=== PATIENT | male | born 1985 | race Caucasian/White ===

== ENCOUNTER 2020-08-06 12:33 | Outpatient (NON) | payer OTHER, SELFPAY ==
[2020-08-07 23:03] LABS: SARS-CoV-2 RNA PCR Negative
== END 2020-08-06 12:34 ==
PROVIDERS: Visit Provider Family Medicine Adolescent Medicine
DX: R09.81 Nasal congestion (principal); R51.9 Headache, unspecified; R53.83 Other fatigue; Z20.828 Contact with and (suspected) exposure to other viral communicable diseases
CPT/HCPCS: 87635; C9803; U0003

== ENCOUNTER 2021-06-05 17:12 | Emergency (ER) | payer BC, SELFPAY ==
[2021-06-05 17:17] VITALS: BP 154/89; PULSE 103; RESP 16; TEMP 35.4; O2SAT 96
--- NOTE | 2021-06-05 17:26 | PC.NURSE ---
agustina contacted from poison control. treatment to irrigate eyes and check for corneal abrasions.
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
[2021-06-05] MEDS: FLUORESCEIN SOD 1 MG/STRIP (19:58)
== END 2021-06-05 20:17 | disposition home or self-care (01) ==
LOC: ANHED 19:55
PROVIDERS: Emergency Provider Emergency Medicine; PCP Family Medicine Adolescent Medicine
DX: H57.13 Ocular pain, bilateral (principal)
CPT/HCPCS: 99283

== ENCOUNTER 2022-07-03 10:39 | Emergency (ER) | payer BC, SELFPAY ==
--- NOTE | 2022-07-03 10:51 | ED.EAR ---
HPI - Ear Problem General Chief complaint: Ear Stated complaint: bilateral ear discomfort,dizziness Time Seen by Provider: 07/03/22 10:51 Source: patient Mode of arrival: ambulatory Limitations: no limitations History of Present Illness HPI Narrative: Mr. Way is a 37-year-old male patient presenting to the clinic today with complaints of bilateral ear fullness and dizziness. He reports that this has been ongoing for approximately 2-3 days. Reports he has been having sinus troubles as well. He denies any fever or chills Related Data Allergies Allergy/AdvReac Type Severity Reaction Status Date / Time erythromycin base AdvReac Intermediate vomiting Verified 07/03/22 11:08 Review of Systems Review of Systems: Pertinent positives per HPI. Patient denies any fever, chills, rash, headache, visual changes, cough, sore throat, shortness of breath, chest pain, palpitations, nausea, vomiting, diarrhea, constipation, abdominal pain, or any urinary issues. [facility] Past Medical History Medical History Healthy adult male Surgical History Surgical History No history of previous surgery Social History Social History Smoking status: Never smoker Comments At the time of my signature, I reviewed and agree with the nursing past medical, surgical, social, and family history. There is no relevant family history pertinent to the patient complaint. Exam Narrative: General: Well-developed, well nourished, in no apparent distress Head: Normocephalic, atraumatic Eyes: Pupils equally round and reactive to light bilaterally, EOM intact, sclera and conjunctive clear, no discharge, lids normal Ears: TMs intact, congested,dull, with mild bulging, ear canals red and inflamed, no drainage, grossly hearing normal. Nose: Nares patent, clear nasal discharge, mild inflammation, no sinus tenderness. Mouth: Oral pharynx without lesions or masses, good dentition, MMM. Postnasal drip Neck: Supple, trachea midline, no enlargement of anterior or posterior cervical nodes, no thyroid masses or goiter palpable. Cardio: Regular rate and rhythm, s1 and s2 normal, no murmur appreciated. Resp: Clear to auscultation bilaterally, no rhonchi, rales, wheezing or rubs Course Course Emergency Course: Portions of this record may have been created with voice recognition software. Level of Care: Express Care Visit Vital Signs Vital signs: Vital Signs Temperature 36.6 C 07/03/22 10:58 Pulse Rate 92 07/03/22 10:58 Respiratory Rate 18 07/03/22 10:58 Blood Pressure 139/96 H 07/03/22 10:58 Pulse Oximetry 98 07/03/22 10:58 Oxygen Delivery Room Air 07/03/22 10:58 Temperature 36.6 C 07/03/22 10:58 Pulse Rate 92 07/03/22 10:58 Respiratory Rate 18 07/03/22 10:58 Blood Pressure 139/96 H 07/03/22 10:58 Pulse Oximetry 98 07/03/22 10:58 Oxygen Delivery Room Air 07/03/22 10:58 Vital signs reviewed Medical Decision Making MDM Narrative Medical decision making narrative: At the time of visit patient is resting comfortably on the exam table. I suspect the patient has eustachian tube dysfunction as well as otitis externa causing his dizziness. Supportive measures were discussed with the patient he voiced understanding of discharge instructions and agrees to treatment plan. Prescription for Cortisporin ear drops and prednisone was given to the patient. Vital Signs Vital Signs: Vital Signs Temperature 36.6 C 07/03/22 10:58 Pulse Rate 92 07/03/22 10:58 Respiratory Rate 18 07/03/22 10:58 Blood Pressure 139/96 H 07/03/22 10:58 Pulse Oximetry 98 07/03/22 10:58 Oxygen Delivery Room Air 07/03/22 10:58 Temperature 36.6 C 07/03/22 10:58 Pulse Rate 92 07/03/22 10:58 Respiratory Rate 18 07/03/22 10:58 Blood Pressur
[2022-07-03 10:58] VITALS: BP 139/96; PULSE 92; RESP 18; TEMP 36.6; O2SAT 98
== END 2022-07-03 11:27 | disposition home or self-care (01) ==
PROVIDERS: Emergency Provider Nurse Practitioner Family; PCP Family Medicine Adolescent Medicine
DX: R42 Dizziness and giddiness (principal); H69.83 Other specified disorders of Eustachian tube, bilateral; H60.313 Diffuse otitis externa, bilateral; Z86.16 Personal history of COVID-19; Z87.891 Personal history of nicotine dependence
CPT/HCPCS: 99213; G0463

== ENCOUNTER → 2022-08-29 12:16 | Outpatient (CLI) | payer BC, SELFPAY ==
--- NOTE | ~2022-08-29 | XR_ITS ---
Clinical Indication: Hemoptysis PA and lateral views of the chest: Comparison: None Findings: The lungs are clear, without evidence of focal consolidation or pleural effusion. Cardiome diastinal silhouette is within normal limits. Bones and soft tissues are unremarkable. Impression: Normal chest. Reviewed, dictated and finalized at [facility]. [employer] EXAMINER Impression: Normal chest.
== END ==
PROVIDERS: PCP Family Medicine Adolescent Medicine; Visit Provider Physician Assistant
DX: R04.2 Hemoptysis (principal)
CPT/HCPCS: 71046

== ENCOUNTER 2022-12-03 18:00 | Emergency (ER) | payer BC, SELFPAY ==
--- NOTE | ~2022-12-03 | XR_ITS ---
XR chest 2V DATE: 12/03/2022 18:38 INDICATION: Cough, wheezing. Ex-smoker. TECHNIQUE: 2 views COMPARISON: 08/29/2022 PA and lateral chest FINDINGS: Normal heart size. No hilar or mediastinal enlargement. No pulmonary infiltrate or consolid ation, pleural effusion or pulmonary vascular congestion or pneumothorax. IMPRESSION: No active cardiopulmonary disease Reviewed, dictated and finalized at location A.
--- NOTE | 2022-12-03 18:06 | ED.URI ---
HPI - URI/Sore Throat General Chief Complaint: Upper Respiratory Infection Stated Complaint: Cough,Congestion,Headache Time Seen by Provider: 12/03/22 18:06 Source: patient Mode of arrival: ambulatory Limitations: no limitations History of Present Illness HPI Narrative: Patient is a 37-year-old male presents with body aches, fever, sweating, congestion, productive cough and ?lungs burning ? since yesterday. States he got concerned when he could hear himself wheezing at night. patient denies any ear pain, nausea, vomiting, diarrhea. Reports fever was 101 at home. Has taken Tylenol for symptoms with no relief. Recently seen and treated for cluster headaches. Has a history of allergies but no history of asthma and does not have an inhaler. Has been treated for pneumonia and bronchitis in the past. Related Data Allergies Allergy/AdvReac Type Severity Reaction Status Date / Time erythromycin base AdvReac Intermediate vomiting Verified 12/03/22 18:07 Review of Systems Review of Systems: All systems reviewed & are unremarkable except as noted in HPI and below Constitutional: Constitutional: Reports body ache(s), Reports chills, Reports fever(s), Denies headache(s), Denies malaise and Denies weakness Eyes: Eyes: Denies loss of vision ENT: Denies otalgia, Reports headache(s), Reports nasal congestion, Reports nasal discharge, Denies sinus pain and Denies sore throat Cardiovascular: Cardiovascular: Denies chest pain, Denies irregular heart rhythm, Denies dyspnea and Reports other ( lungs burning when taking a deep breath. ) Respiratory: Respiratory: Reports cough and Denies dyspnea Gastrointestinal: Gastrointestinal: Denies abdominal pain, Denies melena, Denies hematochezia, Denies diarrhea, Denies nausea and Denies vomiting Musculoskeletal: Musculoskeletal: Denies back pain, Denies myalgias and Denies arthralgias Integumentary/Breasts: Skin/Breast: Denies pruritus and Denies rash Neurologic: Denies headache(s), Denies loss of vision and Denies weakness Psychiatric: Psychiatric: Reports no additional psychiatric complaints [facility] Past Medical History Medical History (Updated 12/03/22 @ 19:35 by Florencia Bustamante APRN) Healthy adult male Personal history of COVID-19 Surgical History Surgical History No history of previous surgery Family History Family History Grandparent Diabetes mellitus Grandparent Malignant neoplasm of prostate Other Diabetes mellitus Social History Social History Smoking status: Never smoker Comments At time of signature, agree with nursing past medical, surgical, social and family history. There is no relevant family history pertinent to the presenting complaint. Exam Const: General: cooperative, healthy appearing, comfortable, no acute distress and well nourished Nutritional Appearance: well nourished Orientation/consciousness: patient oriented x3 Limitations: no limitations HENMT: Head: normal to inspection, normocephalic and atraumatic Ears: external ears normal and TM's normal bilaterally Face/Nose/Sinus: Normal external nose present, normal facial exam, sinuses nontender and face symmetric Face and sinus: normal facial exam, sinuses nontender and face symmetric Mouth: Yes Normal oral and palatal mucosa present, Yes lip normal and Yes moist mucous membranes Teeth and gingiva: dentition normal Throat: posterior oropharynx normal, tonsils normal and uvula midline Eyes: General: appearance normal, both eyes and all related structures Alignment and Position: alignment normal and position normal Periorbital: periorbital findings normal Eyelids: eyelids normal Pupils: Equal, round and reactive pupils present Neck: Neck: normal visual inspection, full ROM, no lymphadenopathy and supple Chest: Chest palpation & ins
[2022-12-03 18:10] VITALS: BP 129/90; PULSE 109; RESP 20; TEMP 36.4; O2SAT 94
[2022-12-03] MEDS: ALBUTEROL SULFATE NEB 2.5 MG/3 ML INH INHALATION (18:44)
[2022-12-03] MEDS: IPRATROPIUM BR 0.02% INH SOLN 0.5 MG/2.5 ML VIAL INHALATION (18:45)
[2022-12-03 18:47] VITALS: RESP 20; O2SAT 94
[2022-12-03 19:30] VITALS: PULSE 98; RESP 20; O2SAT 96
== END 2022-12-03 19:39 | disposition home or self-care (01) ==
PROVIDERS: Emergency Provider Nurse Practitioner Family; PCP Family Medicine Adolescent Medicine
DX: J40 Bronchitis, not specified as acute or chronic (principal); Z20.822 Contact with and (suspected) exposure to COVID-19
CPT/HCPCS: 71046; 87426; 94640; 99213; C9803; G0463

== ENCOUNTER 2024-08-03 21:58 | Emergency (ER) | payer BC, SELFPAY ==
[2024-08-03 22:01] VITALS: BP 119/89; PULSE 136; RESP 25; TEMP 36.6; O2SAT 100
--- NOTE | 2024-08-03 22:02 | PC.NURSE ---
pt to triage crying and visibly upset. this rn attempted to ask patient triage questions and patient began raising his voice, I am in fucking pain and it hurts so fucking bad . pt began laughing at rn when attempting to ask more triage questions. pt sent back out into waiting and began crying ansd screaming loudly.
--- NOTE | 2024-08-03 22:08 | PC.NURSE ---
pt continuing to yell in waiting profanities.
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
--- NOTE | 2024-08-03 22:21 | PC.NURSE ---
REHANA Malagon gave patient [place].
--- NOTE | 2024-08-03 22:40 | PC.NURSE ---
pt visitor states, we are gonna leave . pt seen ambulating with steady unassisted gait towards the exit of the ed.
== END 2024-08-03 22:40 | disposition left against medical advice (07) ==
LOC: ANHED 22:51
PROVIDERS: Emergency Provider Registered Nurse; PCP Family Medicine Adolescent Medicine
DX: T23.052A Burn of unspecified degree of left palm, initial encounter (principal); T23.032A Burn of unspecified degree of multiple left fingers (nail), not including thumb, initial encounter; X15.0XXA Contact with hot stove (kitchen), initial encounter; T31.0 Burns involving less than 10% of body surface
CPT/HCPCS: 99281

== ENCOUNTER 2025-05-06 16:27 | Emergency (ER) | payer BC, SELFPAY ==
--- NOTE | ~2025-05-06 | XR_ITS ---
EXAMINATION: XR knee RT min 4V, 05/06/2025 16:40 CDT HISTORY: anterior swelling pain /no injury COMPARISON: No comparisons available. Findings: No acute fracture or malalignment. No significant degenerative changes. Soft tissues unremarkable. Impression: No acute fracture or malalignment. Reviewed, dictated and finalized at location A. Impression: No acute fracture or malalignment.
--- NOTE | 2025-05-06 16:32 | ED.LOWEXIN ---
HPI - Extremity Injury (Lower) General Chief Complaint: Extremity Problem,Nontraumatic Stated Complaint: knee pain Time Seen by Provider: 05/06/25 16:32 Source: patient Mode of arrival: ambulatory Limitations: no limitations History of Present Illness HPI Narrative: Yuval a 40-year-old male patient presenting to the clinic today with complaints of knee pain x3 days. He reports pain to the anterior knee with localized swelling. No known injury reports symptoms started on Sunday and have gradually gotten worse the past few days. Is having to walk stiff legged. Pain is worse with flexion of the knee. Has taken ibuprofen for pain. His pain is 9/10 currently. Related Data Home Medications ?Medication ?Instructions ?Recorded ?Confirmed ?Last Taken ?Type valacyclovir 1 gram tablet 1,000 mg PO BID PRN 12/11/23 03/25/24 Unknown History verapamil 80 mg tablet 80 mg PO TID PRN 12/11/23 03/25/24 Unknown History Allergies Allergy/AdvReac Type Severity Reaction Status Date / Time erythromycin base AdvReac Intermediate vomiting Verified 05/06/25 16:37 Review of Systems Review of Systems: Pertinent positives per HPI. Patient denies any fever, chills, rash, headache, visual changes, dizziness, cough, runny nose, sore throat, shortness of breath, chest pain, palpitations, nausea, vomiting, diarrhea, constipation, abdominal pain, or any urinary issues. PMFSH Past Medical History Medical History Personal history of COVID-19 Healthy adult male Surgical History Surgical History No history of previous surgery Family History Family History Grandparent Diabetes mellitus Grandparent Malignant neoplasm of prostate Other Diabetes mellitus Social History Social History Smoking status: Never smoker Comments At the time of my signature, I reviewed and agree with the nursing past medical, surgical, social, and family history. There is no relevant family history pertinent to the patient complaint. Exam Narrative: General: Well-developed, well nourished, in no apparent distress Head: Normocephalic, atraumatic. Cardio: Regular rate and rhythm, s1 and s2 normal, no murmur appreciated. Resp: Clear to auscultation bilaterally, no rhonchi, rales, wheezing or rubs. Musculoskeletal: No deformity, anterior knee tender to palpation, pain with flexion of the knee, limited range of motion due to pain, muscle strength strong and equal, peripheral pulse strong, no edema, no cyanosis, normal gait and station Course Course Emergency Course: Portions of this record may have been created with voice recognition software. Level of Care: Express Care Visit Vital Signs Vital signs: Vital Signs Temperature 37.0 C 05/06/25 16:33 Pulse Rate 82 05/06/25 16:33 Respiratory Rate 18 05/06/25 16:33 Blood Pressure 142/100 H 05/06/25 16:33 Pulse Oximetry 98 05/06/25 16:33 Oxygen Delivery Room Air 05/06/25 16:33 Temperature 37.0 C 05/06/25 16:33 Pulse Rate 82 05/06/25 16:33 Respiratory Rate 18 05/06/25 16:33 Blood Pressure 142/100 H 05/06/25 16:33 Pulse Oximetry 98 05/06/25 16:33 Oxygen Delivery Room Air 05/06/25 16:33 Vital signs reviewed MDM - Extremity Injury (Lower) MDM Narrative Medical decision making narrative: At the time of visit patient is resting comfortably on the exam table. Patient appears to be nontoxic. complaints of knee pain x3 days. He reports pain to the anterior knee with localized swelling. No known injury reports symptoms started on Sunday and have gradually gotten worse the past few days. Is having to walk stiff legged. Pain is worse with flexion of the knee. Has taken some ibuprofen for pain. Rates pain 9/10 currently. X-ray of the right knee was ordered. Diagnostics: X-ray of the right knee was performed and was negative for any sign of fracture or malalignment Plan: I suspect patient has anterior acute knee pain, Van wrap was applied and sensation, circulation, and motion within normal limits, ice pack was given. Continue use of ibuprofen. Supportive measures were discussed with the patient and they voiced understanding discharge instructions and agrees to treatment plan. Return precautions reviewed Differential Diagnosis Differential diagnosis: Likely acute internal derangement of knee and other ( knee contusion, knee sprain, patella fracture, femur fracture, tibia fracture) Imaging Data Radiologist's impression: ITS Impressions Knee X-Ray 05/06/25 16:54 Impression: No acute fracture or malalignment. Discharge Plan Discharge Clinical Impression: Right anterior knee pain Patient Disposition: Home Condition: Stable Instructions: Antibiotic Form, Knee Pain (ED) Additional Instructions: X-ray shows no acute fracture or malalignment, no significant degenerative changes, and soft tissues are unremarkable. Rest, ice, elevate, and wear van wrap as directed May take 600-800 mg of ibuprofen every 8 hours as needed for pain Gradually bear weight May follow-up with orthopedic provider- Dr. Varela-call his office tomorrow to schedule an appointment Follow up with your PCP if symptoms persist more than 1 week. Patient Language: [place] Prescriptions: No Action verapamil 80 mg tablet 80 mg PO TID PRN valacyclovir 1 gram tablet 1,000 mg PO BID PRN sumatriptan 20 mg/actuation spray,non-aerosol 20 mg intranasal ONCE PRN (Reason: migraine headache) Qty: 6 3RF Rx Instructions: administer into one nostril as a single dose Follow-up/Referrals: Levi Gates MD [Primary Care Provider, [facility]] Time of Disposition: 17:04 Quality NIHSS Nursing Documentation ED NIHSS nursing documentation: reviewed/agree
[2025-05-06 16:33] VITALS: BP 142/100; PULSE 82; RESP 18; TEMP 37; O2SAT 98
== END 2025-05-06 17:15 | disposition home or self-care (01) ==
PROVIDERS: Emergency Provider Nurse Practitioner Family; PCP Family Medicine Adolescent Medicine
DX: M25.561 Pain in right knee (principal)
CPT/HCPCS: 73564; 99213; G0463